=== PATIENT | male | born 1985 | race Two or more races ===

== ENCOUNTER 2022-04-22 19:27 | Emergency (ER) | payer OTHER ==
[~2022-04-22] VITALS: Ht 160 cm; Wt 61.2 kg
[2022-04-22] MEDS ORDERED: TAMS0.4C PO (22:45)
[2022-04-22] MEDS ORDERED: CIPRO500 MG PO (22:45)
[2022-04-22] MEDS ORDERED: KETO10TA2 PO (22:45)
== END 2022-04-22 23:20 | disposition home or self-care (01) ==
LOC: ER 19:27
DX: N20.9 Urinary calculus, unspecified (principal)